=== PATIENT | male | born 1970 | race Caucasian/White ===

== ENCOUNTER 2022-07-15 14:03 | Inpatient (IN) | payer OTHER ==
[2022-07-15 14:15] VITALS: BMI 43.0
[2022-07-15 17:12] LABS: BASO % 0.7 % (0-2.0); EOS % 0.9 % (0-4.5); HEMOGLOBIN 16.8 GM/dL (11.7-16.9); LYMPH % 15.3 % (8-40); MCH 29.1 pg (25.7-33.7); MCHC 33.5 g/dl (32.0-35.9); MEAN CELL VOLUME 86.7 fl (80-96); MEAN PLT VOLUME 9.3 fl (7.5-11.1); NEUT % 77.1 % (42.8-82.8); PLATELET COUNT 247 10^3/uL (134-434); RBC 5.77 M/mm3 (4.00-5.60); RDW 13.4 % (11.9-15.9); WHITE BLOOD COUNT 12.8 K/mm3 (4.0-10.0)
[2022-07-15 17:15] LABS: PH,URINE 6.5 (5.0-8.0); URINE APPEARANCE CLEAR; URINE BILIRUBIN NEGATIVE (NEGATIVE); URINE COLOR YELLOW; URINE GLUCOSE (UA) NEGATIVE (NEGATIVE); URINE KETONE NEGATIVE (NEGATIVE); URINE LEUK ESTERASE NEGATIVE (NEGATIVE); URINE NITRITE NEGATIVE (NEGATIVE); URINE PROTEIN NEGATIVE (NEGATIVE); URINE UROBILINOGEN 0.2 mg/dL (0.2-1.0)
[2022-07-15 17:23] LABS: INR 1.03 (0.83-1.09)
[2022-07-15 17:25] LABS: ACTIVATED PTT 28.8 SECONDS (25.2-36.5)
[2022-07-15 17:33] LABS: BLOOD UREA NITROGEN 8.5 mg/dL (7-18); CALCIUM 9.7 mg/dL (8.5-10.1)
[2022-07-15 17:34] LABS: ALBUMIN 4.4 g/dl (3.4-5.0)
[2022-07-15 17:37] LABS: CREATININE 0.9 mg/dL (0.55-1.3)
[2022-07-15 17:38] LABS: BILIRUBIN,TOTAL 0.5 mg/dL (0.2-1); TOT PROT 7.9 g/dl (6.4-8.2)
[2022-07-15] MEDS ORDERED: PEG 3350/NA SULF BICARB CL/KCL 4000 ML SOLN.RECON PO ONE (19:05)
[2022-07-15] MEDS: D5-1/2NS+20 MEQ KCL - 20 MEQ/1,000 ML INFUS.BAG IV SCH (20:50)
[2022-07-15] MEDS ORDERED: NEOMYCIN SO4 500 MG TABLET PO SCH (22:00)
[2022-07-15] MEDS: metroNIDAZOLE 250 MG TABLET PO SCH ×2 (22:03→23:59)
[2022-07-15] MEDS: HEPARIN NA (PORCINE) 5,000 UNITS/ML 1ML VIAL SQ SCH ×2 (22:03→22:07)
[2022-07-15 22:06] LABS: IRON SERUM 62 ug/dL (50-175); TOTAL IRON BINDING CAPACITY 333 ug/dL (250-450)
[2022-07-15] MEDS: NEOMYCIN SO4 500 MG TABLET PO SCH (23:59)
[2022-07-16] MEDS: D5-1/2NS+20 MEQ KCL - 20 MEQ/1,000 ML INFUS.BAG IV SCH (02:02)
[2022-07-16] MEDS: NEOMYCIN SO4 500 MG TABLET PO SCH (06:36)
[2022-07-16] MEDS: metroNIDAZOLE 250 MG TABLET PO SCH (06:36)
[2022-07-16 08:42] LABS: BASO % 0.6 % (0-2.0); EOS % 3.5 % (0-4.5); HEMATOCRIT 43.2 % (35.4-49); HEMOGLOBIN 14.9 GM/dL (11.7-16.9); LYMPH % 26.1 % (8-40); MCHC 34.4 g/dl (32.0-35.9); MEAN CELL VOLUME 87.1 fl (80-96); MEAN PLT VOLUME 9.2 fl (7.5-11.1); MONO % 8.6 % (3.8-10.2); NEUT % 61.2 % (42.8-82.8); PLATELET COUNT 212 10^3/uL (134-434); RBC 4.96 M/mm3 (4.00-5.60); WHITE BLOOD COUNT 9.9 K/mm3 (4.0-10.0)
[2022-07-16 09:03] LABS: CALCIUM 9.1 mg/dL (8.5-10.1)
[2022-07-16 09:04] LABS: ALBUMIN 3.6 g/dl (3.4-5.0)
[2022-07-16 09:06] LABS: CREATININE 0.8 mg/dL (0.55-1.3)
[2022-07-16 09:07] LABS: BILIRUBIN,TOTAL 0.6 mg/dL (0.2-1)
[2022-07-16 09:08] LABS: TOT PROT 6.4 g/dl (6.4-8.2)
[2022-07-16] MEDS: HEPARIN NA (PORCINE) 5,000 UNITS/ML 1ML VIAL SQ SCH (10:02)
[2022-07-16] MEDS ORDERED: MIDAZOLAM HCL 2 MG/2 ML SINGLE DOSE VIAL ONE (13:00)
[2022-07-16] MEDS ORDERED: SUCCINYLCHOLINE CHLORIDE 200 MG/10 ML SYRINGE ONE (14:07)
[2022-07-16] MEDS ORDERED: ERTAPENEM SODIUM 1 GM VIAL IVPB ONE ×2 (14:21→14:34)
[2022-07-16] MEDS ORDERED: BUPIVACAINE HCL/PF 0.5% (5MG/ML) 10 ML VIAL ONE (14:22)
[2022-07-16] MEDS ORDERED: BUPIVACAINE HCL/PF 0.5% (5MG/ML) 10 ML VIAL IJ ONE ×2 (14:30)
[2022-07-16] MEDS ORDERED: ERTAPENEM SODIUM 1 GM VIAL ONE (14:31)
[2022-07-16] MEDS ORDERED: ROCURONIUM BROMIDE 50 MG/5 ML SYRINGE ONE ×3 (16:53→19:17)
[2022-07-16] MEDS ORDERED: DEXAMETHASONE SOD PHOSPHATE 4 MG/1 ML VIAL ONE (17:35)
[2022-07-16] MEDS ORDERED: ONDANSETRON 4 MG/2 ML VIAL ONE (17:35)
[2022-07-16] MEDS ORDERED: INDOCYANINE GREEN 25 MG/10 ML VIAL IVPUSH ONE ×2 (17:56→19:30)
[2022-07-16] MEDS ORDERED: SUGAMMADEX SODIUM 200 MG/2 ML VIAL ONE (19:11)
[2022-07-16] MEDS ORDERED: HYDROmorphone HCl 2 MG/ML VIAL ONE (19:17)
[2022-07-16] MEDS ORDERED: ONDANSETRON 4 MG/2 ML VIAL IVPUSH PRN (22:48)
[2022-07-16] MEDS ORDERED: HYDROmorphone HCl 2 MG/ML VIAL IVPUSH PRN ×2 (22:49)
[2022-07-16] MEDS ORDERED: ONDANSETRON 4 MG/2 ML VIAL IVPB PRN (22:56)
[2022-07-16] MEDS ORDERED: BENZOCAINE/MENTHOL 1 EACH LOZENGE MM PRN (22:56)
[2022-07-16] MEDS ORDERED: morphine SULFATE 4 MG/ML VIAL IVPUSH PRN (22:56)
[2022-07-16] MEDS ORDERED: SODIUM CHLORIDE 1,000 ML IV SCH (22:56)
[2022-07-16] MEDS ORDERED: LACTATED RINGERS SOLUTION 1,000 ML IV SCH (23:00)
[2022-07-17] MEDS: HEPARIN NA (PORCINE) 5,000 UNITS/ML 1ML VIAL SQ SCH ×3 (02:47→22:04)
[2022-07-17] MEDS: ACETAMINOPHEN 1000 MG/100 ML BAG IVPB SCH ×2 (03:15→09:48)
[2022-07-17] MEDS: SODIUM CHLORIDE 1,000 ML IV SCH ×5 (03:22→23:28)
[2022-07-17 09:36] LABS: BASO % 0.2 % (0-2.0); HEMATOCRIT 38.5 % (35.4-49); HEMOGLOBIN 13.3 GM/dL (11.7-16.9); LYMPH % 14.5 % (8-40); MCH 29.9 pg (25.7-33.7); MCHC 34.5 g/dl (32.0-35.9); MEAN CELL VOLUME 86.6 fl (80-96); MEAN PLT VOLUME 8.9 fl (7.5-11.1); MONO % 9.3 % (3.8-10.2); PLATELET COUNT 188 10^3/uL (134-434); RBC 4.45 M/mm3 (4.00-5.60); RDW 13.5 % (11.9-15.9); WHITE BLOOD COUNT 16.1 K/mm3 (4.0-10.0)
[2022-07-17 09:51] VITALS: RESP 20
[2022-07-17 09:57] LABS: CALCIUM 8.4 mg/dL (8.5-10.1)
[2022-07-17 09:58] LABS: ALBUMIN 3.1 g/dl (3.4-5.0)
[2022-07-17 10:00] LABS: CREATININE 0.8 mg/dL (0.55-1.3)
[2022-07-17 10:02] LABS: BILIRUBIN,TOTAL 0.7 mg/dL (0.2-1); TOT PROT 5.7 g/dl (6.4-8.2)
[2022-07-17] MEDS: D5-1/2NS+20 MEQ KCL - 20 MEQ/1,000 ML INFUS.BAG IV SCH (17:08)
[2022-07-18] MEDS ORDERED: ACETAMINOPHEN 1000 MG/100 ML BAG IVPB ONE (02:45)
[2022-07-18] MEDS: HEPARIN NA (PORCINE) 5,000 UNITS/ML 1ML VIAL SQ SCH ×3 (05:41→21:19)
[2022-07-18] MEDS: SODIUM CHLORIDE 1,000 ML IV SCH (06:53)
[2022-07-18 09:31] LABS: HEMATOCRIT 37.3 % (35.4-49); MCH 29.9 pg (25.7-33.7); MCHC 34.8 g/dl (32.0-35.9); MEAN CELL VOLUME 86.1 fl (80-96); MEAN PLT VOLUME 8.9 fl (7.5-11.1); PLATELET COUNT 172 10^3/uL (134-434); RBC 4.33 M/mm3 (4.00-5.60); WHITE BLOOD COUNT 12.5 K/mm3 (4.0-10.0)
[2022-07-18 09:50] LABS: CALCIUM 8.1 mg/dL (8.5-10.1)
[2022-07-18 09:51] LABS: ALBUMIN 3.2 g/dl (3.4-5.0); BLOOD UREA NITROGEN 6.2 mg/dL (7-18); MAGNESIUM 2.1 mg/dL (1.8-2.4)
[2022-07-18 09:54] LABS: CREATININE 0.7 mg/dL (0.55-1.3)
[2022-07-18 09:56] LABS: BILIRUBIN,TOTAL 0.7 mg/dL (0.2-1); TOT PROT 6.2 g/dl (6.4-8.2)
[2022-07-18] MEDS: ACETAMINOPHEN 1000 MG/100 ML BAG IVPB PRN ×2 (14:24→21:19)
[2022-07-19] MEDS: HEPARIN NA (PORCINE) 5,000 UNITS/ML 1ML VIAL SQ SCH ×2 (05:28→14:32)
[2022-07-19 09:58] LABS: BASO % 0.3 % (0-2.0); EOS % 2.7 % (0-4.5); HEMOGLOBIN 12.7 GM/dL (11.7-16.9); LYMPH % 18.8 % (8-40); MCH 30.3 pg (25.7-33.7); MCHC 35.2 g/dl (32.0-35.9); MEAN CELL VOLUME 86.2 fl (80-96); MEAN PLT VOLUME 9.1 fl (7.5-11.1); MONO % 9.4 % (3.8-10.2); NEUT % 68.8 % (42.8-82.8); PLATELET COUNT 176 10^3/uL (134-434); RBC 4.18 M/mm3 (4.00-5.60); RDW 13.3 % (11.9-15.9); WHITE BLOOD COUNT 9.3 K/mm3 (4.0-10.0)
[2022-07-19 10:02] LABS: ALBUMIN 3.2 g/dl (3.4-5.0); BLOOD UREA NITROGEN 6.7 mg/dL (7-18)
[2022-07-19 10:03] LABS: CALCIUM 8.5 mg/dL (8.5-10.1)
[2022-07-19 10:05] LABS: CREATININE 0.7 mg/dL (0.55-1.3)
[2022-07-19 10:07] LABS: BILIRUBIN,TOTAL 0.6 mg/dL (0.2-1); TOT PROT 6.1 g/dl (6.4-8.2)
[2022-07-19 15:24] VITALS: BP 128/67; PULSE 70; TEMP 98.7
== END 2022-07-19 19:09 | disposition home or self-care (01) | DRG 330 ==
LOC: JER 14:03 → JERBED 14:47 → J8W 18:49
PROVIDERS: ADMIT Family Medicine; ATTEND Family Medicine
PROC: 8E0W4CZ Robotic Assisted Procedure of Trunk Region, Percutaneous Endoscopic Approach (ICD-10-PCS; 2022-07-16)
PROC: 0DBN4ZZ Excision of Sigmoid Colon, Percutaneous Endoscopic Approach (ICD-10-PCS; principal; 2022-07-16 11:45)
DX: C18.7 Malignant neoplasm of sigmoid colon (principal); K62.5 Hemorrhage of anus and rectum; Z68.41 Body mass index [BMI] 40.0-44.9, adult; Z87.891 Personal history of nicotine dependence; E78.5 Hyperlipidemia, unspecified; I10 Essential (primary) hypertension; E66.9 Obesity, unspecified; D72.829 Elevated white blood cell count, unspecified
CPT/HCPCS: 36415; 71046-TC-FY; 74177-TC; 80053; 80061; 81003; 82728; 83036; 83540; 83550; 83605; 83735; 84443; 85025; 85027; 85610; 85730; 86850; 86900; 86901; 88309-TC; 93005; 93010; 93970-TC; 94760; 99285-25; C9803-CS; J1644; U0003; U0005